=== PATIENT | male | born 1940 | race Caucasian/White ===

== ENCOUNTER 2017-06-17 10:19 | Day surgery (SDC) | payer OTHER, MEDICARE ==
[~2017-06-17 10:19] MED LIST: LIDOCAINE 2% MDV 20 ML VIAL As Ordered; PROPOFOL 200 MG/20 ML VIAL As Ordered
[2017-06-17] MEDS: NS 1,000 ML IV ×2 (10:30)
== END 2017-06-17 12:57 | disposition home or self-care (01) ==
LOC: M OPP 10:19
DX: Z12.11 Encounter for screening for malignant neoplasm of colon (principal); Z86.010 Personal history of colon polyps; I10 Essential (primary) hypertension; I48.91 Unspecified atrial fibrillation; R23.3 Spontaneous ecchymoses; M19.041 Primary osteoarthritis, right hand; M19.042 Primary osteoarthritis, left hand; M19.011 Primary osteoarthritis, right shoulder; M19.012 Primary osteoarthritis, left shoulder; K58.9 Irritable bowel syndrome, unspecified; N28.89 Other specified disorders of kidney and ureter; R32 Unspecified urinary incontinence; G47.30 Sleep apnea, unspecified; Z79.899 Other long term (current) drug therapy; Z86.718 Personal history of other venous thrombosis and embolism; Z96.653 Presence of artificial knee joint, bilateral; Z90.49 Acquired absence of other specified parts of digestive tract; Z87.710 Personal history of (corrected) hypospadias; Z87.891 Personal history of nicotine dependence; Z80.0 Family history of malignant neoplasm of digestive organs; Z80.1 Family history of malignant neoplasm of trachea, bronchus and lung
CPT/HCPCS: 45378

== ENCOUNTER → 2022-06-04 | Outpatient (REF) | payer MEDICARE, OTHER ==
[~2022-06-04] MED LIST changes: +AMLO1TAB25 PO; +COUM1TAB17 PO; +COUM7.5T6 PO; -LIDOCAINE 2% MDV 20 ML VIAL As Ordered; +LISI20TA33 PO; -PROPOFOL 200 MG/20 ML VIAL As Ordered
[2022-06-05 12:41] LABS: APPEARANCE, URINE MANUAL HAZY (CLEAR); COLOR, URINE MANUAL YELLOW (YELLOW)
[2022-06-05 12:42] LABS: BILIRUBIN, URINE MANUAL NEGATIVE (NEGATIVE); BLOOD URINE MANUAL POSITIVE (NEGATIVE); GLUCOSE, URINE (UA) MANUAL NEGATIVE (NEGATIVE); KETONE, URINE MANUAL NEGATIVE (NEGATIVE); LEUKOCYTE ESTERASE, URINE MAN POSITIVE (NEGATIVE); NITRITE, URINE MANUAL POSITIVE (NEGATIVE); PROTEIN, URINE MANUAL NEGATIVE (NEGATIVE); UROBILINOGEN, URINE MANUAL NORMAL (NORMAL)
[2022-06-05 13:03] LABS: RBC, URINE 0-1 /hpf (0-3)
[2022-06-05 13:04] LABS: AMORPHOUS SEDIMENT, URINE MOD AMOUNT (NEGATIVE); BACTERIA, URINE MOD AMOUNT; HYALINE CAST, URINE NONE SEEN /lpf (0-1); SQUAMOUS EPITHELIAL CELL URINE SMALL AMOUNT /hpf (SMALL AMT); TRIPLE PHOSPHATE CRYSTAL,URINE SMALL AMOUNT /hpf
== END ==
LOC: M LAB REF 11:08
PROVIDERS: ATTEND Family Medicine
DX: R30.0 Dysuria (principal)

== ENCOUNTER → 2022-08-21 | Outpatient (REF) | payer MEDICARE ==
[2022-08-21 14:45] LABS: APPEARANCE, URINE CLEAR (CLEAR); BACTERIA, URINE AUTO 1+ (NEGATIVE); BILIRUBIN, URINE AUTO NEGATIVE (NEGATIVE); BLOOD, URINE BLOOD 3+ (NEGATIVE); COLOR, URINE YELLOW (YELLOW); GLUCOSE, URINE (UA) AUTO NEGATIVE (NEGATIVE); KETONE, URINE AUTO NEGATIVE (NEGATIVE); LEUKOCYTE ESTERASE, URINE AUTO 2+ (NEGATIVE); MUCUS, URINE SMALL (NEGATIVE); NITRITE, URINE AUTO NEGATIVE (NEGATIVE); PROTEIN, URINE AUTO 1+ mg/dL (NEGATIVE); RBC, URINE AUTO 4 /HPF (0-3); SPECIFIC GRAVITY URINE AUTO 1.008 (1.002-1.035); SQUAMOUS EPITHELIAL CELL UR AU 0 /HPF (0-6); UROBILINOGEN, URINE AUTO 0.2 mg/dL (0.0-2.0); WBC, URINE AUTO 15 /HPF (0-3)
== END ==
LOC: M LAB REF 14:12
PROVIDERS: ATTEND Nurse Practitioner Family
DX: N39.0 Urinary tract infection, site not specified (principal)

== ENCOUNTER 2024-07-05 13:17 | Emergency (ER) | payer OTHER, MEDICARE ==
[~2024-07-05] VITALS: Ht 172.7 cm; Wt 108.9 kg
[2024-07-05] MEDS: LIDOCAINE 2% 5ML JELLY UROJET TOP ONE (14:07)
[2024-07-05 14:21] LABS: APPEARANCE, URINE CLEAR (CLEAR); BACTERIA, URINE AUTO NEGATIVE (NEGATIVE); BILIRUBIN, URINE AUTO NEGATIVE (NEGATIVE); BLOOD, URINE BLOOD 1+ (NEGATIVE); COLOR, URINE YELLOW (YELLOW); GLUCOSE, URINE (UA) AUTO NEGATIVE (NEGATIVE); KETONE, URINE AUTO NEGATIVE (NEGATIVE); LEUKOCYTE ESTERASE, URINE AUTO NEGATIVE (NEGATIVE); NITRITE, URINE AUTO NEGATIVE (NEGATIVE); PROTEIN, URINE AUTO NEGATIVE (NEGATIVE); RBC, URINE AUTO 1 /HPF (0-3); SPECIFIC GRAVITY URINE AUTO 1.008 (1.002-1.035); SQUAMOUS EPITHELIAL CELL UR AU 0 /HPF (0-6); UROBILINOGEN, URINE AUTO 0.2 mg/dL (0.0-2.0); WBC, URINE AUTO 0 /HPF (0-3)
[2024-07-05 14:38] LABS: BASO # 0.1 10^3/uL (0.0-0.2); BASO % 0.8 % (0.0-1.0); EOS # 0.3 10^3/uL (0.0-0.5); EOS % 3.2 % (0.0-3.0); HEMATOCRIT 41.5 % (42.0-52.0); HEMOGLOBIN 13.6 g/dl (13.5-17.5); LYMPH # 1.1 10^3/uL (1.5-5.0); LYMPH % 12.9 % (24.0-44.0); MEAN CORPUSCULAR HEMOGLOBIN 31.7 pg (27.0-33.0); MEAN CORPUSCULAR HGB CONC 32.8 g/dl (32.0-36.5); MEAN CORPUSCULAR VOLUME 96.7 fl (80.0-96.0); MONO # 0.9 10^3/uL (0.0-0.8); MONO % 10.1 % (2.0-8.0); NEUTROPHILS # 6.4 10^3/uL (1.5-8.5); NEUTROPHILS % 72.8 % (36.0-66.0); PLATELET COUNT, AUTOMATED 182 10^3/uL (150-450); RED BLOOD COUNT 4.29 10^6/uL (4.30-6.10); WHITE BLOOD COUNT 8.8 10^3/uL (4.0-10.0)
[2024-07-05 14:50] LABS: INR 1.36
[2024-07-05 15:59] LABS: CALCIUM LEVEL 8.5 MG/DL (8.3-10.6); CREATININE FOR GFR 1.24 MG/DL (0.70-1.30); POTASSIUM SERUM 4.2 MMOL/L (3.5-5.1)
[2024-07-05 19:23] VITALS: BP 134/83; TEMP 96.6; O2SAT 98
== END 2024-07-05 19:26 | disposition home or self-care (01) ==
LOC: M ED 13:17 → EDBD 13:17 → M ED 19:26
DX: N40.1 Benign prostatic hyperplasia with lower urinary tract symptoms (principal); R33.9 Retention of urine, unspecified; I50.9 Heart failure, unspecified; J44.9 Chronic obstructive pulmonary disease, unspecified; Z86.711 Personal history of pulmonary embolism; Z86.718 Personal history of other venous thrombosis and embolism; Z79.01 Long term (current) use of anticoagulants; Z79.899 Other long term (current) drug therapy

== ENCOUNTER 2024-10-09 12:09 | Emergency (ER) | payer MEDICARE, OTHER ==
[2024-10-09 12:49] VITALS: TEMP 97.1
[2024-10-09 12:59] LABS: KETONE, URINE AUTO RFX NEGATIVE (NEGATIVE); LEUKOCYTE ESTERASE UR AUTO RFX 2+ (NEGATIVE); NITRITE, URINE AUTO RFX NEGATIVE (NEGATIVE); RBC, URINE AUTO RFX 0 /HPF (0-3); SQUAM EPITHELIAL CELL UR AURFX 1 /HPF (0-6); TRIPLE PHOSPHATE CRYSTALS RFX SMALL; WBC, URINE AUTO RFX 0 /HPF (0-3)
[2024-10-09 15:00] VITALS: BP 118/77; O2SAT 90
== END 2024-10-09 15:22 | disposition home or self-care (01) ==
LOC: M ED 12:09 → EDBD 12:09 → M ED 15:22
DX: T83.091A Other mechanical complication of indwelling urethral catheter, initial encounter (principal); I10 Essential (primary) hypertension; I48.91 Unspecified atrial fibrillation; K21.9 Gastro-esophageal reflux disease without esophagitis; Z79.01 Long term (current) use of anticoagulants

== ENCOUNTER 2024-12-21 03:23 | Inpatient (IN) | payer OTHER, MEDICARE ==
[~2024-12-21] VITALS: Ht 172.7 cm; Wt 101.8 kg
[2024-12-21] MEDS ORDERED: ELIQ5TAB PO (03:41)
[2024-12-21 04:18] LABS: BASO # 0.1 10^3/uL (0.0-0.2); BASO % 0.6 % (0.0-1.0); EOS # 0.1 10^3/uL (0.0-0.5); EOS % 0.9 % (0.0-3.0); LYMPH # 1.0 10^3/uL (1.5-5.0); LYMPH % 11.8 % (24.0-44.0); MONO # 0.8 10^3/uL (0.0-0.8); MONO % 8.7 % (2.0-8.0); NEUTROPHILS # 6.8 10^3/uL (1.5-8.5); NEUTROPHILS % 77.7 % (36.0-66.0); PLATELET COUNT, AUTOMATED 159 10^3/uL (150-450)
[2024-12-21 04:29] LABS: INR 1.34
[2024-12-21 04:40] LABS: ALT/SGPT 13 U/L (7.0-40); AST/SGOT 18 U/L (<34); CALCIUM LEVEL 8.8 MG/DL (8.3-10.6); CARBON DIOXIDE LEVEL 38 MMOL/L (20-31); CHLORIDE LEVEL 101 MMOL/L (98-107); CREATININE FOR GFR 1.15 MG/DL (0.70-1.30); GLOMERULAR FILTRATION RATE 62.0 (>35); POTASSIUM SERUM 3.8 MMOL/L (3.5-5.1); SODIUM LEVEL 148 MMOL/L (136-145)
[2024-12-21 06:24] LABS: CK-MB VALUE MASS < 1.0 NG/ML (<3.6); CPK CREATINE PHOSPHOKINASE 23 U/L (46-171)
[2024-12-21] MEDS ORDERED: ISOVUE-370 76% 100 ML VIAL As Ordered ONE (06:33)
[2024-12-21] MEDS: IPRATROPIUM 0.5 MG/ALBUTEROL 2.5 MG INH SOL UD 3 ML NEB ONE (07:14)
[2024-12-21 07:37] LABS: ABG BASE EXCESS 8.0 (-2.0-2.0); ABG HCO3 35.5 MMOL/L (22.0-26.0); ABG O2 SATURATION 92.2 % (95.0-99.0); ABG PARTIAL PRESSURE O2 65.4 mmHg (75.0-100.0); ABG STANDARD HCO3 31.6 MMOL/L. (22.0-26.0); ABG TOTAL CO2 37.4 MMOL/L (23.0-31.0); ABG pH (ARTERIAL) 7.369 UNITS (7.350-7.450)
[2024-12-21 07:40] LABS: ABG PARTIAL PRESSURE CO2 62.9 mmHg (35.0-45.0)
[2024-12-21] MEDS: FUROSEMIDE 100 MG/10 ML VIAL IV ONE (08:01)
[2024-12-21 08:05] LABS: CK-MB VALUE MASS < 1.0 NG/ML (<3.6)
[2024-12-21 08:09] LABS: CPK CREATINE PHOSPHOKINASE 20 U/L (46-171)
[2024-12-21] MEDS ORDERED: VENTAER INH (08:42)
[2024-12-21] MEDS ORDERED: DICL0.1S12 OS (08:42)
[2024-12-21] MEDS ORDERED: DURE0.055 OS (08:42)
[2024-12-21] MEDS ORDERED: FINA5TAB2 PO (08:49)
[2024-12-21] MEDS ORDERED: VIGA0.02 OS (08:49)
[2024-12-21] MEDS ORDERED: TAMS-18 PO (08:49)
[2024-12-21] MEDS ORDERED: FURO40TA2 PO (08:49)
[2024-12-21] MEDS ORDERED: DESI13CR2 TOP (08:49)
[2024-12-21] MEDS ORDERED: FURO80TA2 PO (08:49)
[2024-12-21] MEDS ORDERED: METO50TA7 PO (08:49)
[2024-12-21] MEDS ORDERED: PANT20TA51 PO (08:49)
[2024-12-21] MEDS ORDERED: PHYTOPLEX TOP (08:49)
[2024-12-21] MEDS ORDERED: HOME MED LIST COMPLETE! XX SCH (08:50)
[2024-12-21] MEDS: MIDODRINE 5 MG TAB PO ONE (09:06)
[2024-12-21] MEDS: APIXABAN 5 MG TAB PO SCH (09:06)
[2024-12-21] MEDS: FUROSEMIDE injection 100 MG, VIAL 2 BAG 13MM ADAPTER 1 EACH in NS 100 ML IV SCH (09:06)
[2024-12-21 19:30] VITALS: BP 104/67; TEMP 96.8; O2SAT 96
[2024-12-21 19:58] VITALS: O2SAT 91
[2024-12-21] MEDS: TAMSULOSIN 0.4 MG CAP PO SCH (20:48)
[2024-12-22] VITALS (9 sets, daily range): BP systolic 116–138; BP diastolic 72–93; TEMP 97.2–98.1; O2SAT 90–95
[2024-12-22] MEDS: ACETAMINOPHEN 325 MG TAB PO ONE (06:43)
[2024-12-22] MEDS ORDERED: DIGOXIN INJ 0.5 MG/2 ML AMP IV STA (11:03)
[2024-12-22] MEDS: METOPROLOL TART 50 MG TAB PO SCH (11:12)
[2024-12-22 14:17] LABS: IONIZED CALCIUM 4.3 MG/DL (4.5-5.3)
[2024-12-22 14:44] LABS: CALCIUM LEVEL 8.1 MG/DL (8.3-10.6); CARBON DIOXIDE LEVEL 40.0 MMOL/L (20-31); CHLORIDE LEVEL 97.0 MMOL/L (98-107); CK-MB VALUE MASS 1.1 NG/ML (<3.6); CREATININE FOR GFR 1.09 MG/DL (0.70-1.30); GLOMERULAR FILTRATION RATE 66.1 (>35); MAGNESIUM LEVEL 1.8 MG/DL (1.8-2.4); POTASSIUM SERUM 3.7 MMOL/L (3.5-5.1); SODIUM LEVEL 146.0 MMOL/L (136-145)
[2024-12-22 14:52] LABS: CPK CREATINE PHOSPHOKINASE 33.0 U/L (46-171); MB/CK RELATIVE INDEX 3.33 (< OR =4)
[2024-12-22] MEDS: MAG SULF 1GM/100ML (MAG RUN) 1 GM in IV 1 EA IV ONE (18:07)
[2024-12-22] MEDS: CALCIUM GLUCONATE 1,000 MG in DEXTROSE 5% (D5W) MINI-BAG PLU 100 ML IV ONE (19:32)
[2024-12-23] VITALS (8 sets, daily range): BP systolic 116–127; BP diastolic 71–83; TEMP 97.2–98.3; O2SAT 90–94
[2024-12-23 05:00] LABS: CALCIUM LEVEL 8.3 MG/DL (8.3-10.6); CARBON DIOXIDE LEVEL > 40.0 MMOL/L (20-31); CHLORIDE LEVEL 96 MMOL/L (98-107); CREATININE FOR GFR 1.13 MG/DL (0.70-1.30); GLOMERULAR FILTRATION RATE 63.3 (>35); MAGNESIUM LEVEL 1.9 MG/DL (1.8-2.4); PHOSPHORUS LEVEL 4.4 MG/DL (2.4-5.1); POTASSIUM SERUM 3.9 MMOL/L (3.5-5.1); SODIUM LEVEL 147 MMOL/L (136-145)
[2024-12-23] MEDS: POTASSIUM CHLORIDE 10% LIQ 20MEQ/15ML UDC PO SCH (10:11)
[2024-12-24] VITALS (11 sets, daily range): BP systolic 112–121; BP diastolic 62–76; TEMP 96.8–97.6; O2SAT 88–94
[2024-12-24 09:42] LABS: IONIZED CALCIUM 4.3 MG/DL (4.5-5.3)
[2024-12-24 10:10] LABS: CALCIUM LEVEL 8.1 MG/DL (8.3-10.6); CARBON DIOXIDE LEVEL > 40.0 MMOL/L (20-31); CHLORIDE LEVEL 96 MMOL/L (98-107); CREATININE FOR GFR 0.98 MG/DL (0.70-1.30); GLOMERULAR FILTRATION RATE 75.1 (>35); POTASSIUM SERUM 3.7 MMOL/L (3.5-5.1); SODIUM LEVEL 146 MMOL/L (136-145)
[2024-12-24] MEDS: DOXYCYCLINE HYCLATE 100 MG TABLET PO SCH (10:19)
[2024-12-24] MEDS: CEFDINIR 300 MG CAP PO SCH (10:19)
[2024-12-24] MEDS ORDERED: DIGOXIN INJ 0.5 MG/2 ML AMP IV STA (11:47)
[2024-12-24] MEDS: METOPROLOL TART 25 MG TABLET PO SCH (12:00)
[2024-12-24] MEDS: MIDODRINE 5 MG TAB PO ONE (12:00)
[2024-12-24] MEDS: FUROSEMIDE 20 MG TAB PO SCH (17:24)
[2024-12-25] VITALS (17 sets, daily range): BP systolic 101–131; BP diastolic 63–84; TEMP 96.8–98; O2SAT 89–95
[2024-12-25] MEDS: FUROSEMIDE 40 MG TAB PO SCH (09:00)
[2024-12-25 09:44] LABS: IONIZED CALCIUM 4.7 MG/DL (4.5-5.3)
[2024-12-25 09:51] LABS: BASO # 0.1 10^3/uL (0.0-0.2); BASO % 0.6 % (0.0-1.0); EOS # 0.1 10^3/uL (0.0-0.5); EOS % 0.7 % (0.0-3.0); LYMPH # 0.8 10^3/uL (1.5-5.0); LYMPH % 8.9 % (24.0-44.0); MONO # 0.6 10^3/uL (0.0-0.8); MONO % 6.8 % (2.0-8.0); NEUTROPHILS # 7.4 10^3/uL (1.5-8.5); NEUTROPHILS % 82.8 % (36.0-66.0); PLATELET COUNT, AUTOMATED 145 10^3/uL (150-450)
[2024-12-25 10:00] LABS: ERYTHROCYTE SEDIMENTATION RATE 48 mm/hr (0-20)
[2024-12-25 10:14] LABS: C REACTIVE PROTEIN QUANTITATIV 1.27 MG/DL (<1.0)
[2024-12-25 10:17] LABS: CALCIUM LEVEL 8.5 MG/DL (8.3-10.6); CARBON DIOXIDE LEVEL > 40.0 MMOL/L (20-31); CHLORIDE LEVEL 94 MMOL/L (98-107); CREATININE FOR GFR 0.99 MG/DL (0.70-1.30); GLOMERULAR FILTRATION RATE 74.2 (>35); MAGNESIUM LEVEL 1.9 MG/DL (1.8-2.4); PHOSPHORUS LEVEL 3.1 MG/DL (2.4-5.1); POTASSIUM SERUM 4.2 MMOL/L (3.5-5.1); SODIUM LEVEL 142 MMOL/L (136-145)
[2024-12-25] MEDS: TAMSULOSIN 0.4 MG CAP PO ONE (10:25)
[2024-12-25] MEDS: FINASTERIDE 5 MG TAB PO SCH (10:26)
[2024-12-25] MEDS: CALCIUM GLUCONATE 1,000 MG in DEXTROSE 5% (D5W) MINI-BAG PLU 100 ML IV ONE (10:32)
[2024-12-26] VITALS (18 sets, daily range): BP systolic 110–127; BP diastolic 68–92; TEMP 96.7–97.2; O2SAT 83–92
[2024-12-26 14:37] LABS: CALCIUM LEVEL 8.4 MG/DL (8.3-10.6); CARBON DIOXIDE LEVEL 39.0 MMOL/L (20-31); CHLORIDE LEVEL 96.0 MMOL/L (98-107); CREATININE FOR GFR 0.96 MG/DL (0.70-1.30); GLOMERULAR FILTRATION RATE 77.0 (>35); POTASSIUM SERUM 5.2 MMOL/L (3.5-5.1); SODIUM LEVEL 141.0 MMOL/L (136-145)
[2024-12-26] MEDS: FUROSEMIDE 20 MG/2 ML VIAL IV ONE (17:50)
[2024-12-26] MEDS: MIDODRINE 5 MG TAB PO ONE (17:51)
[2024-12-26] MEDS: TAMSULOSIN 0.4 MG CAP PO SCH (20:28)
[2024-12-26] MEDS: FUROSEMIDE 40 MG/4 ML VIAL IV ONE (23:33)
[2024-12-27] VITALS (21 sets, daily range): BP systolic 102–145; BP diastolic 62–79; TEMP 96.9–97.3; O2SAT 88–96
[2024-12-27 06:00] LABS: MAGNESIUM LEVEL 1.9 MG/DL (1.8-2.4)
[2024-12-27] MEDS ORDERED: PILL CUTTER 1 EACH XX PRN (08:00)
[2024-12-27 08:25] LABS: CALCIUM LEVEL 8.5 MG/DL (8.3-10.6); CARBON DIOXIDE LEVEL 39.0 MMOL/L (20-31); CHLORIDE LEVEL 94.0 MMOL/L (98-107); CREATININE FOR GFR 1.09 MG/DL (0.70-1.30); GLOMERULAR FILTRATION RATE 66.1 (>35); POTASSIUM SERUM 4.8 MMOL/L (3.5-5.1); SODIUM LEVEL 141.0 MMOL/L (136-145)
[2024-12-27 08:33] LABS: BASO # 0.1 10^3/uL (0.0-0.2); BASO % 0.7 % (0.0-1.0); EOS # 0.1 10^3/uL (0.0-0.5); EOS % 0.7 % (0.0-3.0); LYMPH # 0.9 10^3/uL (1.5-5.0); LYMPH % 10.1 % (24.0-44.0); MONO # 0.6 10^3/uL (0.0-0.8); MONO % 7.0 % (2.0-8.0); NEUTROPHILS # 7.3 10^3/uL (1.5-8.5); NEUTROPHILS % 81.3 % (36.0-66.0); PLATELET COUNT, AUTOMATED 149 10^3/uL (150-450)
[2024-12-27] MEDS: MAG SULF 1GM/100ML (MAG RUN) 1 GM in IV 1 EA IV ONE ×2 (08:38→16:12)
[2024-12-27] MEDS: metOLazone 2.5 MG TAB PO ONE (08:39)
[2024-12-27] MEDS: MIDODRINE 5 MG TAB PO SCH (08:40)
[2024-12-27 08:45] LABS: ERYTHROCYTE SEDIMENTATION RATE 47 mm/hr (0-20)
[2024-12-27] MEDS: FUROSEMIDE 40 MG/4 ML VIAL IV SCH (10:01)
[2024-12-27 14:35] LABS: IONIZED CALCIUM 4.4 MG/DL (4.5-5.3)
[2024-12-27 14:39] LABS: BASO # 0.1 10^3/uL (0.0-0.2); BASO % 0.8 % (0.0-1.0); EOS # 0.1 10^3/uL (0.0-0.5); EOS % 1.3 % (0.0-3.0); LYMPH # 1.0 10^3/uL (1.5-5.0); LYMPH % 11.4 % (24.0-44.0); MONO # 0.7 10^3/uL (0.0-0.8); MONO % 8.3 % (2.0-8.0); NEUTROPHILS # 6.6 10^3/uL (1.5-8.5); NEUTROPHILS % 78.0 % (36.0-66.0); PLATELET COUNT, AUTOMATED 152 10^3/uL (150-450)
[2024-12-27 15:07] LABS: CALCIUM LEVEL 8.6 MG/DL (8.3-10.6); CARBON DIOXIDE LEVEL > 40.0 MMOL/L (20-31); CHLORIDE LEVEL 91 MMOL/L (98-107); CREATININE FOR GFR 1.07 MG/DL (0.70-1.30); GLOMERULAR FILTRATION RATE 67.6 (>35); MAGNESIUM LEVEL 2.0 MG/DL (1.8-2.4); PHOSPHORUS LEVEL 3.2 MG/DL (2.4-5.1); POTASSIUM SERUM 4.3 MMOL/L (3.5-5.1); SODIUM LEVEL 141 MMOL/L (136-145)
[2024-12-28] VITALS (25 sets, daily range): BP systolic 95–142; BP diastolic 68–85; PULSE 100–103; TEMP 97.1–98.1; O2SAT 87–96
[2024-12-28 06:31] LABS: CALCIUM LEVEL 8.8 MG/DL (8.3-10.6); CARBON DIOXIDE LEVEL > 40.0 MMOL/L (20-31); CHLORIDE LEVEL 90 MMOL/L (98-107); CREATININE FOR GFR 1.26 MG/DL (0.70-1.30); GLOMERULAR FILTRATION RATE 55.6 (>35); MAGNESIUM LEVEL 2.0 MG/DL (1.8-2.4); POTASSIUM SERUM 4.3 MMOL/L (3.5-5.1); SODIUM LEVEL 141 MMOL/L (136-145)
[2024-12-29] VITALS (34 sets, daily range): BP systolic 93–144; BP diastolic 58–74; TEMP 96.7–97.7; O2SAT 87–96
[2024-12-29 05:41] LABS: CALCIUM LEVEL 8.8 MG/DL (8.3-10.6); CARBON DIOXIDE LEVEL > 40.0 MMOL/L (20-31); CHLORIDE LEVEL 90 MMOL/L (98-107); CREATININE FOR GFR 1.20 MG/DL (0.70-1.30); GLOMERULAR FILTRATION RATE 58.9 (>35); MAGNESIUM LEVEL 2.0 MG/DL (1.8-2.4); POTASSIUM SERUM 4.1 MMOL/L (3.5-5.1); SODIUM LEVEL 144 MMOL/L (136-145)
[2024-12-29] MEDS: acetaZOLAMIDE 250 MG TAB PO ONE (15:10)
[2024-12-30] VITALS (10 sets, daily range): BP systolic 100–127; BP diastolic 53–83; TEMP 96.8–97.6; O2SAT 82–93
[2024-12-30 06:03] LABS: CALCIUM LEVEL 8.8 MG/DL (8.3-10.6); CARBON DIOXIDE LEVEL > 40.0 MMOL/L (20-31); CHLORIDE LEVEL 89 MMOL/L (98-107); CREATININE FOR GFR 1.15 MG/DL (0.70-1.30); GLOMERULAR FILTRATION RATE 62.0 (>35); MAGNESIUM LEVEL 2.1 MG/DL (1.8-2.4); POTASSIUM SERUM 3.5 MMOL/L (3.5-5.1); SODIUM LEVEL 139 MMOL/L (136-145)
[2024-12-30] MEDS: POTASSIUM CHLORIDE 10MEQ SR TABLET PO SCH (08:43)
[2024-12-30] MEDS ORDERED: acetaZOLAMIDE 250 MG TAB PO SCH (09:00)
[2024-12-31 04:11] VITALS: BP 112/76; TEMP 97.2; O2SAT 92
[2024-12-31 06:39] LABS: CALCIUM LEVEL 8.7 MG/DL (8.3-10.6); CARBON DIOXIDE LEVEL > 40.0 MMOL/L (20-31); CHLORIDE LEVEL 91 MMOL/L (98-107); CREATININE FOR GFR 1.16 MG/DL (0.70-1.30); GLOMERULAR FILTRATION RATE 61.3 (>35); MAGNESIUM LEVEL 2.2 MG/DL (1.8-2.4); POTASSIUM SERUM 3.7 MMOL/L (3.5-5.1); SODIUM LEVEL 139 MMOL/L (136-145)
[2024-12-31 12:00] VITALS: BP 112/72; TEMP 97.2; O2SAT 91
[2024-12-31 20:27] VITALS: BP 132/74; TEMP 97.3; O2SAT 92
[2024-12-31 23:45] VITALS: BP 126/76; TEMP 97.6; O2SAT 89
[2025-01-01] VITALS (8 sets, daily range): BP systolic 100–123; BP diastolic 62–76; TEMP 96.8–97.9; O2SAT 82–94
[2025-01-01 05:21] LABS: VENOUS BASE EXCESS 10.7 (-2.0-2.0); VENOUS HCO3 40.2 MMOL/L (23.0-27.0); VENOUS O2 SATURATION 91.8 % (60.0-80.0); VENOUS PARTIAL PRESSURE CO2 80.0 mmHg (38.0-50.0); VENOUS PARTIAL PRESSURE O2 66.7 mmHg (30.0-50.0); VENOUS PH 7.319 UNITS (7.330-7.430); VENOUS STANDARD HCO3 34.3 MMOL/L; VENOUS TOTAL CO2 42.7 MMOL/L (24.0-28.0)
[2025-01-01 05:31] LABS: PLATELET COUNT, AUTOMATED 160 10^3/uL (150-450)
[2025-01-01 05:59] LABS: CALCIUM LEVEL 8.4 MG/DL (8.3-10.6); CARBON DIOXIDE LEVEL > 40.0 MMOL/L (20-31); CHLORIDE LEVEL 95 MMOL/L (98-107); CREATININE FOR GFR 1.23 MG/DL (0.70-1.30); GLOMERULAR FILTRATION RATE 57.2 (>35); MAGNESIUM LEVEL 2.3 MG/DL (1.8-2.4); POTASSIUM SERUM 4.1 MMOL/L (3.5-5.1); SODIUM LEVEL 142 MMOL/L (136-145)
[2025-01-02 04:29] VITALS: BP 132/92; TEMP 96.8; O2SAT 96
[2025-01-02 06:24] LABS: CALCIUM LEVEL 8.5 MG/DL (8.3-10.6); CARBON DIOXIDE LEVEL 39.0 MMOL/L (20-31); CHLORIDE LEVEL 99.0 MMOL/L (98-107); CREATININE FOR GFR 1.15 MG/DL (0.70-1.30); GLOMERULAR FILTRATION RATE 62.0 (>35); MAGNESIUM LEVEL 2.3 MG/DL (1.8-2.4); POTASSIUM SERUM 4.5 MMOL/L (3.5-5.1); SODIUM LEVEL 144.0 MMOL/L (136-145)
[2025-01-02 08:24] VITALS: O2SAT 89
[2025-01-02 08:42] VITALS: BP 120/79; O2SAT 91
[2025-01-02 12:00] VITALS: BP 126/83; TEMP 97; O2SAT 87
[2025-01-02 20:27] VITALS: BP 117/79; TEMP 96.8; O2SAT 89
[2025-01-03 03:59] VITALS: BP 126/88; TEMP 97; O2SAT 96
[2025-01-03 06:17] LABS: PLATELET COUNT, AUTOMATED 175 10^3/uL (150-450)
[2025-01-03 06:37] LABS: CALCIUM LEVEL 8.6 MG/DL (8.3-10.6); CARBON DIOXIDE LEVEL 37.0 MMOL/L (20-31); CHLORIDE LEVEL 97.0 MMOL/L (98-107); CREATININE FOR GFR 1.1 MG/DL (0.70-1.30); GLOMERULAR FILTRATION RATE 65.4 (>35); MAGNESIUM LEVEL 2.3 MG/DL (1.8-2.4); POTASSIUM SERUM 4.5 MMOL/L (3.5-5.1); SODIUM LEVEL 142.0 MMOL/L (136-145)
[2025-01-03 11:51] VITALS: BP 138/80; TEMP 97; O2SAT 90
[2025-01-03 20:02] LABS: PLATELET COUNT, AUTOMATED 204 10^3/uL (150-450)
[2025-01-03 20:12] VITALS: BP 125/71; TEMP 97; O2SAT 89
[2025-01-04 04:13] VITALS: BP 117/73; TEMP 97; O2SAT 96
[2025-01-04 06:43] LABS: PLATELET COUNT, AUTOMATED 177 10^3/uL (150-450)
[2025-01-04 06:52] LABS: CALCIUM LEVEL 8.5 MG/DL (8.3-10.6); CARBON DIOXIDE LEVEL 39.0 MMOL/L (20-31); CHLORIDE LEVEL 98.0 MMOL/L (98-107); CREATININE FOR GFR 1.2 MG/DL (0.70-1.30); GLOMERULAR FILTRATION RATE 58.9 (>35); POTASSIUM SERUM 4.6 MMOL/L (3.5-5.1); SODIUM LEVEL 143.0 MMOL/L (136-145)
[2025-01-04] MEDS: PREPARATION H SUPP (HEMORRHOID) PR SCH (09:00)
[2025-01-04 12:00] VITALS: BP 116/75; TEMP 96.8; O2SAT 89
[2025-01-05 03:39] VITALS: BP 117/83; TEMP 96.8; O2SAT 91
[2025-01-05 06:28] LABS: PLATELET COUNT, AUTOMATED 184 10^3/uL (150-450)
[2025-01-05 06:46] LABS: CALCIUM LEVEL 8.6 MG/DL (8.3-10.6); CARBON DIOXIDE LEVEL 38.0 MMOL/L (20-31); CHLORIDE LEVEL 98.0 MMOL/L (98-107); CREATININE FOR GFR 1.09 MG/DL (0.70-1.30); GLOMERULAR FILTRATION RATE 66.1 (>35); POTASSIUM SERUM 4.5 MMOL/L (3.5-5.1); SODIUM LEVEL 142.0 MMOL/L (136-145)
[2025-01-05 12:06] VITALS: BP 125/88; TEMP 97.3; O2SAT 87
[2025-01-05] MEDS: ACETAMINOPHEN 325 MG TAB PO PRN (13:06)
[2025-01-05 14:30] VITALS: O2SAT 84
[2025-01-05 14:36] VITALS: O2SAT 91
[2025-01-05 20:29] VITALS: BP 108/72; TEMP 97; O2SAT 95
[2025-01-06 00:34] VITALS: BP 110/73; TEMP 97.9; O2SAT 96
[2025-01-06 03:45] VITALS: BP 109/73; TEMP 97; O2SAT 95
[2025-01-06 05:59] LABS: PLATELET COUNT, AUTOMATED 186 10^3/uL (150-450)
[2025-01-06 06:30] LABS: CALCIUM LEVEL 8.4 MG/DL (8.3-10.6); CARBON DIOXIDE LEVEL 36.0 MMOL/L (20-31); CHLORIDE LEVEL 98.0 MMOL/L (98-107); CREATININE FOR GFR 1.14 MG/DL (0.70-1.30); GLOMERULAR FILTRATION RATE 62.6 (>35); POTASSIUM SERUM 4.9 MMOL/L (3.5-5.1); SODIUM LEVEL 143.0 MMOL/L (136-145)
[2025-01-06 11:25] VITALS: BP 132/84; O2SAT 96
[2025-01-06 12:21] VITALS: BP 113/80; O2SAT 96
[2025-01-06 20:19] VITALS: BP 114/78; TEMP 97.3; O2SAT 93
[2025-01-06] MEDS: FUROSEMIDE 40 MG/4 ML VIAL IV PRN (22:54)
[2025-01-07 03:32] VITALS: BP 114/81; TEMP 97.4; O2SAT 95
[2025-01-07 06:21] LABS: PLATELET COUNT, AUTOMATED 189 10^3/uL (150-450)
[2025-01-07 06:50] LABS: CALCIUM LEVEL 8.4 MG/DL (8.3-10.6); CARBON DIOXIDE LEVEL 40.0 MMOL/L (20-31); CHLORIDE LEVEL 98.0 MMOL/L (98-107); CREATININE FOR GFR 1.09 MG/DL (0.70-1.30); GLOMERULAR FILTRATION RATE 66.1 (>35); POTASSIUM SERUM 4.8 MMOL/L (3.5-5.1); SODIUM LEVEL 145.0 MMOL/L (136-145)
[2025-01-07 08:00] VITALS: BP 110/75; TEMP 97.3; O2SAT 90
[2025-01-07 12:00] VITALS: BP 115/79; TEMP 97.4; O2SAT 89
[2025-01-07] MEDS: IPRATROPIUM 0.5 MG/2.5 ML (0.02%) SOLN NEB INH ONE (18:57)
[2025-01-07 19:54] VITALS: BP 102/69; TEMP 97.3; O2SAT 91
[2025-01-08] VITALS (7 sets, daily range): BP systolic 108–118; BP diastolic 73–86; TEMP 97–99.9; O2SAT 87–93
[2025-01-08] MEDS: FUROSEMIDE 40 MG/4 ML VIAL IV ONE (01:44)
[2025-01-08 06:41] LABS: PLATELET COUNT, AUTOMATED 194 10^3/uL (150-450)
[2025-01-08 07:07] LABS: CALCIUM LEVEL 8.6 MG/DL (8.3-10.6); CARBON DIOXIDE LEVEL 37.0 MMOL/L (20-31); CHLORIDE LEVEL 99.0 MMOL/L (98-107); CREATININE FOR GFR 1.13 MG/DL (0.70-1.30); GLOMERULAR FILTRATION RATE 63.3 (>35); POTASSIUM SERUM 4.9 MMOL/L (3.5-5.1); SODIUM LEVEL 145.0 MMOL/L (136-145)
[2025-01-08] MEDS: FUROSEMIDE 40 MG/4 ML VIAL IV SCH (17:24)
[2025-01-09] VITALS (9 sets, daily range): BP systolic 112–130; BP diastolic 74–89; TEMP 97.2–97.6; O2SAT 85–98
[2025-01-09 07:06] LABS: PLATELET COUNT, AUTOMATED 188 10^3/uL (150-450)
[2025-01-09 07:43] LABS: CALCIUM LEVEL 8.5 MG/DL (8.3-10.6); CARBON DIOXIDE LEVEL 37.0 MMOL/L (20-31); CHLORIDE LEVEL 100.0 MMOL/L (98-107); CREATININE FOR GFR 1.11 MG/DL (0.70-1.30); GLOMERULAR FILTRATION RATE 64.7 (>35); POTASSIUM SERUM 4.9 MMOL/L (3.5-5.1); SODIUM LEVEL 145.0 MMOL/L (136-145)
[2025-01-09] MEDS: IPRATROPIUM 0.5 MG/ALBUTEROL 2.5 MG INH SOL UD 3 ML NEB PRN (19:53)
[2025-01-09] MEDS: FUROSEMIDE 40 MG/4 ML VIAL IV ONE (20:32)
[2025-01-09 20:36] LABS: ABG BASE EXCESS 5.0 (-2.0-2.0); ABG HCO3 31.6 MMOL/L (22.0-26.0); ABG O2 SATURATION 91.0 % (95.0-99.0); ABG PARTIAL PRESSURE CO2 54.9 mmHg (35.0-45.0); ABG PARTIAL PRESSURE O2 63.0 mmHg (75.0-100.0); ABG STANDARD HCO3 28.8 MMOL/L. (22.0-26.0); ABG TOTAL CO2 33.3 MMOL/L (23.0-31.0); ABG pH (ARTERIAL) 7.378 UNITS (7.350-7.450)
[2025-01-09 20:50] LABS: BASO # 0.1 10^3/uL (0.0-0.2); BASO % 0.5 % (0.0-1.0); EOS # 0.1 10^3/uL (0.0-0.5); EOS % 1.0 % (0.0-3.0); LYMPH # 0.9 10^3/uL (1.5-5.0); LYMPH % 6.6 % (24.0-44.0); MONO # 1.0 10^3/uL (0.0-0.8); MONO % 7.5 % (2.0-8.0); NEUTROPHILS # 10.9 10^3/uL (1.5-8.5); NEUTROPHILS % 84.0 % (36.0-66.0); PLATELET COUNT, AUTOMATED 197 10^3/uL (150-450)
[2025-01-09 21:14] LABS: ALT/SGPT 16.0 U/L (7.0-40); AST/SGOT 21.0 U/L (<34); CALCIUM LEVEL 8.3 MG/DL (8.3-10.6); CARBON DIOXIDE LEVEL 40.0 MMOL/L (20-31); CHLORIDE LEVEL 98.0 MMOL/L (98-107); CREATININE FOR GFR 1.04 MG/DL (0.70-1.30); GLOMERULAR FILTRATION RATE 69.9 (>35); POTASSIUM SERUM 4.9 MMOL/L (3.5-5.1); SODIUM LEVEL 143.0 MMOL/L (136-145)
[2025-01-09] MEDS: cefTRIAXone SOD 2 GM in DEXTROSE 5% (D5W) ADV/MINI-BAG 50 ML IV SCH (21:31)
[2025-01-09] MEDS: HEPARIN SOD 5000 UNITS/ML 1 ML VIAL/SYRINGE SQ SCH (21:32)
[2025-01-09] MEDS: FUROSEMIDE injection 100 MG, VIAL 2 BAG 13MM ADAPTER 1 EACH in NS 100 ML IV SCH (21:46)
[2025-01-09] MEDS: IPRATROPIUM 0.5 MG/ALBUTEROL 2.5 MG INH SOL UD 3 ML NEB SCH (23:08)
[2025-01-10] VITALS (25 sets, daily range): BP systolic 100–140; BP diastolic 61–89; TEMP 97.1–98.6; O2SAT 86–96
[2025-01-10 00:13] LABS: VENOUS BASE EXCESS 9.3 (-2.0-2.0); VENOUS HCO3 37.2 MMOL/L (23.0-27.0); VENOUS O2 SATURATION 74.0 % (60.0-80.0); VENOUS PARTIAL PRESSURE CO2 65.6 mmHg (38.0-50.0); VENOUS PARTIAL PRESSURE O2 39.3 mmHg (30.0-50.0); VENOUS PH 7.371 UNITS (7.330-7.430); VENOUS STANDARD HCO3 32.5 MMOL/L; VENOUS TOTAL CO2 39.2 MMOL/L (24.0-28.0)
[2025-01-10] MEDS ORDERED: METOPROLOL TART 25 MG TABLET PO SCH (04:30)
[2025-01-10] MEDS ORDERED: METOPROLOL 5 MG/5 ML VIAL IV SCH (05:00)
[2025-01-10] MEDS: METOPROLOL 5 MG/5 ML VIAL IV SCH (05:12)
[2025-01-10 05:13] LABS: PLATELET COUNT, AUTOMATED 179 10^3/uL (150-450)
[2025-01-10 05:38] LABS: CALCIUM LEVEL 8.2 MG/DL (8.3-10.6); CARBON DIOXIDE LEVEL 35.0 MMOL/L (20-31); CHLORIDE LEVEL 98.0 MMOL/L (98-107); CREATININE FOR GFR 1.12 MG/DL (0.70-1.30); GLOMERULAR FILTRATION RATE 64.0 (>35); POTASSIUM SERUM 4.8 MMOL/L (3.5-5.1); SODIUM LEVEL 142.0 MMOL/L (136-145)
[2025-01-10 06:29] LABS: ALT/SGPT 16.0 U/L (7.0-40); AST/SGOT 16.0 U/L (<34)
[2025-01-10 06:30] LABS: ABG BASE EXCESS 6.5 (-2.0-2.0); ABG HCO3 32.8 MMOL/L (22.0-26.0); ABG O2 SATURATION 95.8 % (95.0-99.0); ABG PARTIAL PRESSURE CO2 54.2 mmHg (35.0-45.0); ABG PARTIAL PRESSURE O2 80.7 mmHg (75.0-100.0); ABG STANDARD HCO3 30.3 MMOL/L. (22.0-26.0); ABG TOTAL CO2 34.5 MMOL/L (23.0-31.0); ABG pH (ARTERIAL) 7.400 UNITS (7.350-7.450)
[2025-01-10 08:20] LABS: MAGNESIUM LEVEL 2.1 MG/DL (1.8-2.4)
[2025-01-10] MEDS: ENOXAPARIN 40 MG/0.4 ML SYRINGE (J1650 PER 10MG) SC SCH (08:27)
[2025-01-10] MEDS: AMIODARONE HCL 150 MG in IV 1 EA IV SCH (08:49)
[2025-01-10] MEDS: AMIODARONE HCL 360 MG in IV 1 EA IV SCH ×2 (09:04→15:06)
[2025-01-10 12:56] LABS: CALCIUM LEVEL 8.5 MG/DL (8.3-10.6); CARBON DIOXIDE LEVEL 33.0 MMOL/L (20-31); CHLORIDE LEVEL 96.0 MMOL/L (98-107); CREATININE FOR GFR 1.16 MG/DL (0.70-1.30); GLOMERULAR FILTRATION RATE 61.3 (>35); MAGNESIUM LEVEL 2.1 MG/DL (1.8-2.4); POTASSIUM SERUM 4.3 MMOL/L (3.5-5.1); SODIUM LEVEL 142.0 MMOL/L (136-145)
[2025-01-10] MEDS: DOBUTamine HCL 500,000 MCG in IV 1 EA IV SCH (18:11)
[2025-01-10 19:03] LABS: CALCIUM LEVEL 8.5 MG/DL (8.3-10.6); CARBON DIOXIDE LEVEL 32.0 MMOL/L (20-31); CHLORIDE LEVEL 96.0 MMOL/L (98-107); CREATININE FOR GFR 1.18 MG/DL (0.70-1.30); GLOMERULAR FILTRATION RATE 60.1 (>35); MAGNESIUM LEVEL 2.0 MG/DL (1.8-2.4); POTASSIUM SERUM 4.0 MMOL/L (3.5-5.1); SODIUM LEVEL 141.0 MMOL/L (136-145)
[2025-01-10] MEDS: ENOXAPARIN 100 MG/1 ML SYRINGE (J1650 PER 10MG) SC SCH (20:17)
[2025-01-10] MEDS: DOCUSATE SODIUM 100 MG CAPSULE PO SCH (20:17)
[2025-01-10] MEDS ORDERED: ENOXAPARIN 40 MG/0.4 ML SYRINGE (J1650 PER 10MG) SC SCH (21:00)
[2025-01-10] MEDS ORDERED: METOPROLOL 5 MG/5 ML VIAL IV PRN (21:00)
[2025-01-10] MEDS: DIGOXIN INJ 0.5 MG/2 ML AMP IV STA (21:03)
[2025-01-11] VITALS (25 sets, daily range): BP systolic 108–152; BP diastolic 58–95; TEMP 97.2–98.6; O2SAT 86–96
[2025-01-11 05:01] LABS: PLATELET COUNT, AUTOMATED 189 10^3/uL (150-450)
[2025-01-11 05:31] LABS: DIGOXIN LEVEL 0.9 NG/ML (0.8-2.0)
[2025-01-11 05:40] LABS: ALT/SGPT 13.0 U/L (7.0-40); AST/SGOT 17.0 U/L (<34); CALCIUM LEVEL 8.6 MG/DL (8.3-10.6); CARBON DIOXIDE LEVEL 37.0 MMOL/L (20-31); CHLORIDE LEVEL 97.0 MMOL/L (98-107); CREATININE FOR GFR 1.25 MG/DL (0.70-1.30); GLOMERULAR FILTRATION RATE 56.1 (>35); MAGNESIUM LEVEL 2.1 MG/DL (1.8-2.4); POTASSIUM SERUM 4.2 MMOL/L (3.5-5.1); SODIUM LEVEL 143.0 MMOL/L (136-145)
[2025-01-11] MEDS: SENNA 8.6 MG TAB PO SCH (08:47)
[2025-01-11] MEDS: DIGOXIN INJ 0.5 MG/2 ML AMP IV SCH (08:48)
[2025-01-11] MEDS: PANTOPRAZOLE 40MG VIAL IV SCH (09:12)
[2025-01-11 12:57] LABS: CALCIUM LEVEL 8.2 MG/DL (8.3-10.6); CARBON DIOXIDE LEVEL 38.0 MMOL/L (20-31); CHLORIDE LEVEL 96.0 MMOL/L (98-107); CREATININE FOR GFR 1.15 MG/DL (0.70-1.30); GLOMERULAR FILTRATION RATE 62.0 (>35); MAGNESIUM LEVEL 1.9 MG/DL (1.8-2.4); POTASSIUM SERUM 3.3 MMOL/L (3.5-5.1); SODIUM LEVEL 143.0 MMOL/L (136-145)
[2025-01-11] MEDS: POTASSIUM CHLORIDE 10MEQ SR TABLET PO ONE ×3 (13:19→22:10)
[2025-01-11] MEDS: KCL 10MEQ/100ML SWI (KRUN) 10 MEQ in IV 1 EA IV ONE (14:03)
[2025-01-11 20:39] LABS: CALCIUM LEVEL 7.9 MG/DL (8.3-10.6); CARBON DIOXIDE LEVEL 38.0 MMOL/L (20-31); CHLORIDE LEVEL 96.0 MMOL/L (98-107); CREATININE FOR GFR 1.17 MG/DL (0.70-1.30); GLOMERULAR FILTRATION RATE 60.7 (>35); MAGNESIUM LEVEL 1.9 MG/DL (1.8-2.4); POTASSIUM SERUM 3.5 MMOL/L (3.5-5.1); SODIUM LEVEL 143.0 MMOL/L (136-145)
[2025-01-12] VITALS (22 sets, daily range): BP systolic 111–153; BP diastolic 63–92; TEMP 97.1–98.6; O2SAT 83–95
[2025-01-12 04:44] LABS: PLATELET COUNT, AUTOMATED 183 10^3/uL (150-450)
[2025-01-12 05:10] LABS: ALT/SGPT 14 U/L (7.0-40); AST/SGOT 15 U/L (<34); CALCIUM LEVEL 8.5 MG/DL (8.3-10.6); CARBON DIOXIDE LEVEL > 40.0 MMOL/L (20-31); CHLORIDE LEVEL 95 MMOL/L (98-107); CREATININE FOR GFR 1.30 MG/DL (0.70-1.30); DIGOXIN LEVEL 1.3 NG/ML (0.8-2.0); GLOMERULAR FILTRATION RATE 53.5 (>35); MAGNESIUM LEVEL 2.1 MG/DL (1.8-2.4); POTASSIUM SERUM 4.3 MMOL/L (3.5-5.1); SODIUM LEVEL 146 MMOL/L (136-145)
[2025-01-12 05:12] LABS: ABG BASE EXCESS 8.8 (-2.0-2.0); ABG HCO3 32.8 MMOL/L (22.0-26.0); ABG O2 SATURATION 90.5 % (95.0-99.0); ABG PARTIAL PRESSURE CO2 42.4 mmHg (35.0-45.0); ABG PARTIAL PRESSURE O2 58.0 mmHg (75.0-100.0); ABG STANDARD HCO3 32.4 MMOL/L. (22.0-26.0); ABG TOTAL CO2 34.1 MMOL/L (23.0-31.0); ABG pH (ARTERIAL) 7.506 UNITS (7.350-7.450)
[2025-01-12] MEDS: DIGOXIN INJ 0.5 MG/2 ML AMP IV ONE (12:47)
[2025-01-12 18:44] LABS: CALCIUM LEVEL 8.2 MG/DL (8.3-10.6); CARBON DIOXIDE LEVEL 36.0 MMOL/L (20-31); CHLORIDE LEVEL 97.0 MMOL/L (98-107); CREATININE FOR GFR 1.18 MG/DL (0.70-1.30); GLOMERULAR FILTRATION RATE 60.1 (>35); MAGNESIUM LEVEL 2.0 MG/DL (1.8-2.4); POTASSIUM SERUM 3.7 MMOL/L (3.5-5.1); SODIUM LEVEL 143.0 MMOL/L (136-145)
[2025-01-13] VITALS (64 sets, daily range): BP systolic 72–132; BP diastolic 56–90; TEMP 97–98.2; O2SAT 77–98
[2025-01-13 04:35] LABS: PLATELET COUNT, AUTOMATED 202 10^3/uL (150-450)
[2025-01-13] MEDS: ALBUTEROL SULFATE 2.5 MG/0.5 ML INH CONCENTRATE NEB SOLN NEB PRN (05:08)
[2025-01-13 05:12] LABS: ALT/SGPT 12.0 U/L (7.0-40); AST/SGOT 18.0 U/L (<34); CALCIUM LEVEL 8.4 MG/DL (8.3-10.6); CARBON DIOXIDE LEVEL 38.0 MMOL/L (20-31); CHLORIDE LEVEL 96.0 MMOL/L (98-107); CREATININE FOR GFR 1.29 MG/DL (0.70-1.30); GLOMERULAR FILTRATION RATE 54.0 (>35); MAGNESIUM LEVEL 2.1 MG/DL (1.8-2.4); POTASSIUM SERUM 3.6 MMOL/L (3.5-5.1); SODIUM LEVEL 144.0 MMOL/L (136-145)
[2025-01-13] MEDS ORDERED: METOPROLOL 5 MG/5 ML VIAL As Ordered ONE (11:09)
[2025-01-13] MEDS ORDERED: VASOPRESSIN IN 0.9 % NACL 20UNIT/100ML INFUS.BTL As Ordered ONE (11:10)
[2025-01-13] MEDS: METOPROLOL 5 MG/5 ML VIAL IV STA (11:11)
[2025-01-13 11:26] LABS: ABG BASE EXCESS -4.4 (-2.0-2.0); ABG HCO3 23.4 MMOL/L (22.0-26.0); ABG O2 SATURATION 75.2 % (95.0-99.0); ABG PARTIAL PRESSURE CO2 53.7 mmHg (35.0-45.0); ABG STANDARD HCO3 20.3 MMOL/L. (22.0-26.0); ABG TOTAL CO2 25.1 MMOL/L (23.0-31.0); ABG pH (ARTERIAL) 7.258 UNITS (7.350-7.450)
[2025-01-13 11:28] LABS: ABG PARTIAL PRESSURE O2 48.5 mmHg (75.0-100.0)
[2025-01-13] MEDS ORDERED: NOREPINEPHRINE 4 MG IN D5W 250 ML IVBAG (16 MCG/ML) As Ordered ONE (11:47)
[2025-01-13] MEDS ORDERED: MIDAZOLAM 5 MG/ML 1 ML VIAL As Ordered ONE (11:57)
[2025-01-13 12:19] LABS: ALT/SGPT 12.0 U/L (7.0-40); AST/SGOT 15.0 U/L (<34); CALCIUM LEVEL 7.3 MG/DL (8.3-10.6); CARBON DIOXIDE LEVEL 29.0 MMOL/L (20-31); CHLORIDE LEVEL 98.0 MMOL/L (98-107); CREATININE FOR GFR 1.32 MG/DL (0.70-1.30); GLOMERULAR FILTRATION RATE 52.5 (>35); POTASSIUM SERUM 2.9 MMOL/L (3.5-5.1); SODIUM LEVEL 145.0 MMOL/L (136-145)
[2025-01-13] MEDS ORDERED: MIDAZOLAM INJ 2 MG/2 ML VIAL As Ordered ONE (12:30)
[2025-01-13] MEDS: MIDAZOLAM INJ 2 MG/2 ML VIAL IV STA (12:32)
[2025-01-13] MEDS: MIDAZOLAM 100MG/100ML-0.9%NACL 100 MG in IV 1 EA IV SCH (13:09)
[2025-01-13] MEDS: VASOPRESSIN IN 0.9 % NACL 20 UNIT in IV 1 EA IV SCH (13:10)
[2025-01-13] MEDS: fentaNYL CITRATE/NaCl 1,000 MCG in IV 1 EA IV SCH (13:10)
[2025-01-13] MEDS: ROCURONIUM BROMIDE 50MG/5ML VIAL IV STA (14:14)
[2025-01-13] MEDS: MIDAZOLAM 5 MG/ML 1 ML VIAL IV STA (14:14)
[2025-01-13] MEDS: KCL 10MEQ/100ML SWI (KRUN) 10 MEQ in IV 1 EA IV ONE (14:27)
[2025-01-13 14:35] LABS: ABG BASE EXCESS 3.2 (-2.0-2.0); ABG HCO3 28.7 MMOL/L (22.0-26.0); ABG O2 SATURATION 86.9 % (95.0-99.0); ABG PARTIAL PRESSURE CO2 46.8 mmHg (35.0-45.0); ABG PARTIAL PRESSURE O2 54.4 mmHg (75.0-100.0); ABG STANDARD HCO3 27.0 MMOL/L. (22.0-26.0); ABG TOTAL CO2 30.2 MMOL/L (23.0-31.0); ABG pH (ARTERIAL) 7.406 UNITS (7.350-7.450)
[2025-01-13] MEDS: AMIODARONE HCL 150 MG in IV 1 EA IV SCH ×2 (14:43→14:57)
[2025-01-13] MEDS: NOREPINEPHRINE 4MG IN D5 250ML 4 MG in IV 1 EA IV SCH (15:02)
[2025-01-13] MEDS: AMIODARONE HCL 360 MG in IV 1 EA IV SCH ×2 (15:20→20:52)
[2025-01-13] MEDS: KCL 20MEQ IN 100ML SWI (KRUN) 20 MEQ in IV 1 EA IV SCH (15:33)
[2025-01-13 21:42] LABS: ALT/SGPT 79.0 U/L (7.0-40); AST/SGOT 78.0 U/L (<34); CALCIUM LEVEL 8.4 MG/DL (8.3-10.6); CARBON DIOXIDE LEVEL 28.0 MMOL/L (20-31); CHLORIDE LEVEL 96.0 MMOL/L (98-107); CREATININE FOR GFR 2.19 MG/DL (0.70-1.30); GLOMERULAR FILTRATION RATE 28.6 (>35); MAGNESIUM LEVEL 2.3 MG/DL (1.8-2.4); POTASSIUM SERUM 6.9 MMOL/L (3.5-5.1); SODIUM LEVEL 138.0 MMOL/L (136-145)
[2025-01-13] MEDS: HumuLIN R (REGULAR) INSULIN (NovoLIN R) **100 U/ML** PER UNIT IV STA (22:32)
[2025-01-13] MEDS: DEXTROSE 50% 50 ML SYRINGE IV STA (22:32)
[2025-01-14] VITALS (15 sets, daily range): BP systolic 69–128; BP diastolic 41–71; TEMP 103.1–106.3; O2SAT 81–96
[2025-01-14 00:26] LABS: VENOUS BASE EXCESS 0.8 (-2.0-2.0); VENOUS HCO3 29.5 MMOL/L (23.0-27.0); VENOUS O2 SATURATION 64.1 % (60.0-80.0); VENOUS PARTIAL PRESSURE CO2 63.8 mmHg (38.0-50.0); VENOUS PARTIAL PRESSURE O2 40.1 mmHg (30.0-50.0); VENOUS PH 7.283 UNITS (7.330-7.430); VENOUS STANDARD HCO3 24.3 MMOL/L; VENOUS TOTAL CO2 31.5 MMOL/L (24.0-28.0)
[2025-01-14 00:59] LABS: CALCIUM LEVEL 8.6 MG/DL (8.3-10.6); CARBON DIOXIDE LEVEL 29.0 MMOL/L (20-31); CHLORIDE LEVEL 97.0 MMOL/L (98-107); CREATININE FOR GFR 2.56 MG/DL (0.70-1.30); GLOMERULAR FILTRATION RATE 23.7 (>35); POTASSIUM SERUM 6.0 MMOL/L (3.5-5.1); SODIUM LEVEL 138.0 MMOL/L (136-145)
[2025-01-14] MEDS: ACETAMINOPHEN *IV* 1,000 MG in IV 1 EA IV STA (01:34)
[2025-01-14] MEDS: VANCOMYCIN HCL 2,000 MG, VIAL MATE ADAPTER 1 EACH in NS 500 ML IV ONE (02:32)
[2025-01-14] MEDS ORDERED: ATROPINE SULFATE 1% OPHTH SOLN 2 ML BTL SL PRN (02:55)
[2025-01-14] MEDS: ONDANSETRON 4MG 2ML VIAL IV PRN (03:06)
[2025-01-14] MEDS: MORPHINE 2 MG/ML 1 ML VIAL IV PRN (03:06)
[2025-01-14] MEDS ORDERED: PIPERACILLIN/TAZOBACTAM SOD 4.5 GM in DEXTROSE 5% (D5W) ADV/MINI-BAG 50 ML IV SCH (04:00)
== END 2025-01-14 03:43 | disposition expired | DRG 291 ==
LOC: EDBD 03:23 → M ED 03:23 → M ED INP 08:17 → M PCU 23:59 → M MSPAV 12-30 16:46 → M PCU 01-09 20:36 → M ICU 01-10 06:40
PROVIDERS: ADMIT General Practice; ATTEND Internal Medicine Pulmonary Disease
PROC: B246ZZZ Ultrasonography of Right and Left Heart (ICD-10-PCS; principal; 2024-12-21)
PROC: B246ZZZ Ultrasonography of Right and Left Heart (ICD-10-PCS; 2025-01-10)
PROC: 0BH17EZ Insertion of Endotracheal Airway into Trachea, Via Natural or Artificial Opening (ICD-10-PCS; 2025-01-13)
PROC: 02HV33Z Insertion of Infusion Device into Superior Vena Cava, Percutaneous Approach (ICD-10-PCS; 2025-01-13)
PROC: 04HY32Z Insertion of Monitoring Device into Lower Artery, Percutaneous Approach (ICD-10-PCS; 2025-01-13)
PROC: 5A1935Z Respiratory Ventilation, Less than 24 Consecutive Hours (ICD-10-PCS; 2025-01-13)
DX: I13.0 Hypertensive heart and chronic kidney disease with heart failure and stage 1 through stage 4 chronic kidney disease, or unspecified chronic kidney disease (principal); I50.33 Acute on chronic diastolic (congestive) heart failure; J18.9 Pneumonia, unspecified organism; J96.21 Acute and chronic respiratory failure with hypoxia; I48.21 Permanent atrial fibrillation; J98.11 Atelectasis; E87.0 Hyperosmolality and hypernatremia; E66.2 Morbid (severe) obesity with alveolar hypoventilation; E87.4 Mixed disorder of acid-base balance; J44.0 Chronic obstructive pulmonary disease with (acute) lower respiratory infection; J44.1 Chronic obstructive pulmonary disease with (acute) exacerbation; K62.5 Hemorrhage of anus and rectum; R57.0 Cardiogenic shock; R54 Age-related physical debility; Z51.5 Encounter for palliative care; Z66 Do not resuscitate; K58.9 Irritable bowel syndrome, unspecified; R33.9 Retention of urine, unspecified; N40.1 Benign prostatic hyperplasia with lower urinary tract symptoms; E88.09 Other disorders of plasma-protein metabolism, not elsewhere classified; R91.1 Solitary pulmonary nodule; I25.10 Atherosclerotic heart disease of native coronary artery without angina pectoris; H91.93 Unspecified hearing loss, bilateral; E87.6 Hypokalemia; I27.21 Secondary pulmonary arterial hypertension; I95.9 Hypotension, unspecified; M17.0 Bilateral primary osteoarthritis of knee; K43.9 Ventral hernia without obstruction or gangrene; K64.9 Unspecified hemorrhoids; N18.2 Chronic kidney disease, stage 2 (mild); N39.490 Overflow incontinence; I80.01 Phlebitis and thrombophlebitis of superficial vessels of right lower extremity; I50.810 Right heart failure, unspecified; I87.2 Venous insufficiency (chronic) (peripheral); Z99.81 Dependence on supplemental oxygen; Z79.01 Long term (current) use of anticoagulants; Z90.49 Acquired absence of other specified parts of digestive tract; Z79.899 Other long term (current) drug therapy; Z96.653 Presence of artificial knee joint, bilateral; Z87.891 Personal history of nicotine dependence; Z86.718 Personal history of other venous thrombosis and embolism; Z68.35 Body mass index [BMI] 35.0-35.9, adult